=== PATIENT | female | born 1995 | race Caucasian/White ===

== ENCOUNTER 2018-12-07 03:08 | Emergency (ER) | payer SELFPAY ==
[~2018-12-07] VITALS: Ht 157.5 cm; Wt 49.9 kg
--- NOTE | 2018-12-07 03:30 | NUR ---
ERMD at bedside for MSE. 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
--- NOTE | 2018-12-07 03:38 | NUR ---
Patient discharged to home in stable conditon. Written and verbal after care instructions given. Patient verbalizes understanding of instructions.
== END 2018-12-07 03:39 | disposition home or self-care (01) ==
LOC: ER 03:09
DX: T19.2XXA Foreign body in vulva and vagina, initial encounter (principal); X58.XXXA Exposure to other specified factors, initial encounter; Y93.89 Activity, other specified; Y92.89 Other specified places as the place of occurrence of the external cause; Y99.8 Other external cause status
CPT/HCPCS: A4663